=== PATIENT | male | born 1945 | race Caucasian/White ===

== ENCOUNTER 2016-10-20 15:43 | Emergency (ER) | payer MEDICARE ==
[~2016-10-20] VITALS: Ht 175.3 cm; Wt 79.0 kg
[~2016-10-20 15:43] MED LIST: LOVA20TA PO; PERC7.5T13 PO; URISOL PO
[2016-10-20 15:46] VITALS: BP 143/80; PULSE 85; RESP 17; TEMP 98.7; O2SAT 98
[2016-10-20 16:04] VITALS: O2SAT 99
[2016-10-20 16:07] VITALS: BP 183/96; PULSE 75; RESP 15; O2SAT 97
[2016-10-20] MEDS ORDERED: [UNRECOGNIZED DRUG - OTHER] PO (16:07)
[2016-10-20] MEDS ORDERED: SODIUM CHLOR 0.9% 1000 ML INJ 1,000 ML IV ONE (16:10)
[2016-10-20] MEDS ORDERED: ASPI1TAB69 PO (16:11)
[2016-10-20] MEDS ORDERED: ARGI500C PO (16:11)
[2016-10-20] MEDS ORDERED: KETOROLAC TROMETHAMINE 30 MG/ML (IVP) VIAL IV PUSH ONE (16:15)
[2016-10-20] MEDS ORDERED: SODIUM CHLORIDE 0.9% FLUSH 10 ML FLUSH IVF PRN (16:15)
--- NOTE | 2016-10-20 16:20 | PD ---
HPI Chief Complaint: Dizziness Time Seen by Provider: 16:12 Travel History International Travel<30 days: No Contact w/Intl Traveler<30days: No Traveled to known affect area: No History of Present Illness HPI 70 year old male presents to the emergency department for evaluation of dizziness that started at 10am this morning. He states he feels lightheaded. He denies syncope, falls, nausea, vomiting, headache, fever. No chest pain or SOB. He reports right groin pain that started a few months ago, but is worsenign. He reports history of kidney stones and states this is his typical pain. He reports chronic intermittent diarrhea/constipation, but states this is not worse than normal. He reports history of nephrolithiasis and tinnitus. He takes over the counter vitamins. Patient states dizziness is improving. PFSH Past Medical History High Cholesterol: Yes Cerebrovascular Accident: Yes (TIA) Diminished Hearing: No Gout: Yes Hiatal Hernia: Yes Medical other: Yes (tinnitus) Immunizations Current: No Past Surgical History Abdominal Surgery: Yes (HERNIA REPAIR) Tonsillectomy: Yes Social History Alcohol Use: Yes (OCC.) Tobacco Use: No Substance Use: No Allergies-Medications (Allergen,Severity, Reaction): Coded Allergies: No Known Allergies (Unverified , 06/27/15) Reported Meds & Prescriptions Reported Meds & Active Scripts Active Reported l-Arginine (Arginine) 500 Mg Cap 1 Cap PO DAILY Aspirin 81 Mg Tabdr 81 Mg PO DAILY [brain quiet plus] 1 Tab PO DAILY Review of Systems Except as stated in HPI: all other systems reviewed are Neg Physical Exam Narrative GENERAL: Well-nourished, well-developed male patient, ambulatory. Afebrile. SKIN: Focused skin assessment warm/dry. HEAD: Normocephalic. Atraumatic. EYES: No scleral icterus. No injection or drainage. NECK: Supple, trachea midline. No JVD or lymphadenopathy. CARDIOVASCULAR: Regular rate and rhythm without murmurs, gallops, or rubs. RESPIRATORY: Breath sounds equal bilaterally. No accessory muscle use. Lung sounds are clear to auscultation throughout. GASTROINTESTINAL: Abdomen soft and nondistended. Patient has tenderness over the right groin. MUSCULOSKELETAL: No cyanosis, or edema. BACK: Nontender without obvious deformity. No CVA tenderness. NEUROLOGICAL: Awake and alert. Cranial nerves II through XII intact. Motor and sensory grossly within normal limits. Five out of 5 muscle strength in all muscle groups. Normal speech. Data Data Last Documented VS Vital Signs Date Time Temp Pulse Resp B/P Pulse Ox O2 Delivery O2 Flow Rate FiO2 10/20/16 16:34 63 133/69 78 141/89 10/20/16 16:22 15 99 Room Air 10/20/16 15:46 98.7 Orders Electrocardiogram (10/20/16 16:10) Complete Blood Count With Diff (10/20/16 16:10) Comprehensive Metabolic Panel (10/20/16 16:10) Magnesium (Mg) (10/20/16 16:10) Ckmb (Isoenzyme) Profile (10/20/16 16:10) Troponin I (10/20/16 16:10) Urinalysis - C+S If Indicated (10/20/16 16:10) Ecg Monitoring (10/20/16 16:10) Iv Access Insert/Monitor (10/20/16 16:10) Oximetry (10/20/16 16:10) Sodium Chloride 0.9% Flush (Ns Flush) (10/20/16 16:15) Sodium Chlor 0.9% 1000 Ml Inj (Ns 1000 M (10/20/16 16:10) Orthostatic Vital Signs (10/20/16 16:10) Ketorolac Inj (Toradol Inj) (10/20/16 16:15) Ct Abd/Pel W/O Iv Contrast (10/20/16 ) Labs Laboratory Tests Test 10/20/16 10/20/16 14:25 16:30 White Blood Count 6.2 TH/MM3 Red Blood Count 4.89 MIL/MM3 Hemoglobin 14.8 GM/DL Hematocrit 43.6 % Mean Corpuscular Volume 89.2 FL Mean Corpuscular Hemoglobin 30.2 PG Mean Corpuscular Hemoglobin 33.8 % Concent Red Cell Distribution Width 12.6 % Platelet Count 178 TH/MM3 Mean Platelet Volume 9.3 FL Neutrophils (%) (Auto) 46.9 % Lymphocytes (%) (Auto) 42.2 % Monocytes (%) (Auto) 6.2 % Eosinophils (%) (Auto) 3.6 % Basophils (%) (Auto) 1.1 % Neutrophils # (Auto) 2.9 TH/MM3 Lymphocytes # (Auto) 2.6 TH/MM3 Monocytes # (Auto) 0.4 TH/MM3 Eosinophils # (Auto) 0.2 TH/MM3 Basophils # (Auto) 0.1 TH/MM3 CBC Comment DIFF FINAL Differential Comment Sodium Level 144 MEQ/L Potassium Level 3.5 MEQ/L Chloride Level 110 MEQ/L Carbon Dioxide Level 24.8 MEQ/L Anion Gap 9 MEQ/L Blood Urea Nitrogen 8 MG/DL Creatinine 1.35 MG/DL Estimat Glomerular Filtration 52 ML/MIN Rate Random Glucose 95 MG/DL Calcium Level 9.3 MG/DL Magnesium Level 2.2 MG/DL Total Bilirubin 0.8 MG/DL Aspartate Amino Transf 24 U/L (AST/SGOT) Alanine Aminotransferase 31 U/L (ALT/SGPT) Alkaline Phosphatase 112 U/L Total Creatine Kinase 63 U/L Troponin I LESS THAN 0.02 NG/ML Total Protein 7.5 GM/DL Albumin 4.1 GM/DL Urine Color YELLOW Urine Turbidity CLEAR Urine pH 6.5 Urine Specific [place] 1.014 Urine Protein NEG mg/dL Urine Glucose (UA) NEG mg/dL Urine Ketones NEG mg/dL Urine Occult Blood NEG Urine Nitrite NEG Urine Bilirubin NEG Urine Urobilinogen LESS THAN 2.0 MG/DL Urine Leukocyte Esterase TRACE Urine RBC 1 /hpf Urine WBC 3 /hpf Urine Mucus FEW /lpf Microscopic Urinalysis Comment CULT NOT INDICATED MDM Medical Decision Making Medical Screen Exam Complete: Yes Emergency Medical Condition: Yes Medical Record Reviewed: Yes Interpretation(s) Last Impressions Abdomen/Pelvis CT 10/20/16 0000 Signed Impressions: Service Date/Time: Thursday, October 20, 2016 16:57 - CONCLUSION: 1. Small bilateral nonobstructing renal calculi. No acute findings within the abdomen and pelvis. Hari Castillo MD Differential Diagnosis electrolyte abnormality vs. ACS vs. nephrolithiasis vs. orthostatic hypotension vs. dehydration vs. vertigo Narrative Course 70 year old male presents to the emergency department for evaluation of dizziness that started this morning and worsening right groin pain. EKG, CBC, CMP, Magnesium, CK, Troponin, UA, are ordered and pending. Orthostatic VS are ordered and pending. CT abdomen/pelvis without contrast is ordered and pending. Patient is given NS 1 L IV bolus and ketorolac 15 mg IV for pain. EKG shows SR, HR 64, no acute ST changes. CBC is unremarkable. CMP shows creatinine of 1.35. Magnesium is 2.2. CK is 63. Troponin is less than 0.02. UA is negative for occult blood and infection. CT abdomen/pelvis shows small bilateral nonobstructing renal calculi. No acute findings within the abdomen and pelvis.. Orthostatic VS are negative for orthostatic hypotension. My attending physician, Dr. Gill, is aware of physical exam findings, laboratory findings, and imaging results. He agrees with plan and disposition. The patient was discharged in stable condition with instructions, including return instructions and follow up instructions. Diagnosis Primary Impression: Dizziness Additional Impression: Renal calculi Referrals: Primary Care Physician call for appointment Patient Instructions: Dizziness (ED), General Instructions Additional Instructions: Follow up with your primary care physician. Return to the emergency department for any acute, worsening of symptoms. Med/Other Pt SpecificInfo: No Change to Meds Disposition: 01 DISCHARGE HOME Condition: Stable [place] Oct 20, 2016 16:19
[2016-10-20 16:22] VITALS: BP 147/85; PULSE 87; RESP 15; O2SAT 99
[2016-10-20 16:34] VITALS: BP_SYST 133; BP_SYST 141; BP_DIAS 69; BP_DIAS 89
[2016-10-20 16:41] LABS: AUTOMATED NEUTROPHIL # 2.9 TH/MM3 (1.8-7.7); BASOPHIL # 0.1 TH/MM3 (0-0.2); BASOPHIL % 1.1 % (0.0-2.0); EOSINOPHIL # 0.2 TH/MM3 (0-0.4); EOSINOPHIL % 3.6 % (0.0-4.0); HEMATOCRIT 43.6 % (39.0-51.0); HEMO FLAGS DIFF FINAL; LYMPH % 42.2 % (9.0-44.0); LYMPHOCYTE # 2.6 TH/MM3 (1.0-4.8); MEAN CELL VOLUME 89.2 FL (80.0-100.0); MEAN CORPUSCULAR HEMOGLOBIN 30.2 PG (27.0-34.0); MEAN CORPUSCULAR HGB CONC 33.8 % (32.0-36.0); MONO % 6.2 % (0.0-8.0); NEUT % 46.9 % (16.0-70.0); PLATELET COUNT 178 TH/MM3 (150-450); RED BLOOD COUNT 4.89 MIL/MM3 (4.50-5.90); RED CELL DISTRIBUTION WIDTH 12.6 % (11.6-17.2); WHITE BLOOD COUNT 6.2 TH/MM3 (4.0-11.0)
[2016-10-20 16:44] LABS: BLOOD, URINE NEG (NEG); COMMENT (UR) CULT NOT INDICATED; CULTURE IF INDICATED CULT NOT INDICATED; GLUCOSE,URINE NEG (NEG); KETONE, URINE NEG (NEG); MUCUS URINE FEW /lpf (OCC); NITRITE,URINE NEG (NEG); PH, URINE 6.5 (5.0-8.5); URINE COLOR YELLOW (YELLW/STRAW)
[2016-10-20 17:03] LABS: ANION GAP 9 MEQ/L (5-15); AST (GOT) 24 U/L (15-37); BICARBONATE 24.8 MEQ/L (21.0-32.0); BLOOD UREA NITROGEN 8 MG/DL (7-18); CHLORIDE 110 MEQ/L (98-107); GLOMERULAR FILTRATION RATE 52 ML/MIN (>89); MAGNESIUM 2.2 MG/DL (1.5-2.5); POTASSIUM 3.5 MEQ/L (3.5-5.1); SODIUM (NA) 144 MEQ/L (136-145)
[2016-10-20 17:08] LABS: ALKALINE PHOSPHATASE 112 U/L (45-117); ALT (GPT) 31 U/L (12-78); TOTAL BILIRUBIN ADULT 0.8 MG/DL (0.2-1.0)
[2016-10-20 17:09] LABS: CREATINE KINASE 63 U/L (39-308)
--- NOTE | 2016-10-20 17:20 | RADRPT ---
EXAM DATE/TIME: 10/20/2016 16:57 [facility] COMPARISON: No previous studies available for comparison. INDICATIONS : Right groin pain. ORAL CONTRAST: No oral contrast ingested. RADIATION DOSE: 13.21 CTDIvol (mGy) MEDICAL HISTORY : Renal calculi. Hernia, inguinal. SURGICAL HISTORY : Inguinal hernia repair. ENCOUNTER: Initial ACUITY: 1 week PAIN SCALE: 4/10 LOCATION: Right lower quadrant TECHNIQUE: Volumetric scanning of the abdomen and pelvis was performed. Using automated exposure control and ad justment of the mA and/or kV according to patient size, radiation dose was kept as low as reasonably achievable to obtain optimal diagnostic quality images. FINDINGS: LOWER LUNGS: The visualized lower lungs are clear. LIVER: Homogeneous density without lesion. There is no dilation of the biliary tree. No calcified gallston es. SPLEEN: Normal size without lesion. PANCREAS: Within normal limits. KIDNEYS: Nonobstructing linear calculus right kidney lower pole measuring about 4 mm. Tiny 1 mm calculus upper pole left kidney. Atherosclerotic aorta. ADRENAL GLANDS: Within normal limits. VASCULAR: There is no aortic aneurysm. BOWEL/MESENTERY: The stomach, small bowel, and colon demonstrate no acute abnormality. There is no free intraperitone al air or fluid. ABDOMINAL WALL: Within normal limits. RETROPERITONEUM: There is no lymphadenopathy. BLADDER: No wall thickening or mass. REPRODUCTIVE: Within normal limits. INGUINAL: There is no lymphadenopathy or hernia. MUSCULOSKELETAL: Within normal limits for patient age. CONCLUSION: 1. Small bilateral nonobstructing renal calculi. No acute findings within the abdomen and pelvis. Hari Castillo MD on October 20, 2016 at 17:14 Board Certified Radiologist. This report was verified electronically.
[2016-10-20 18:11] VITALS: BP 138/76
--- NOTE | 2016-10-21 14:19 | EKG ---
Date Performed: 10/20/2016 Time Performed: 16:20:37 PTAGE: 70 years EKG: Sinus rhythm WITH SINUS ARRHYTHMIA RIGHT BUNDLE BRANCH BLOCK Compared to previous tracing, the right bundle branc h block is new. ABNORMAL ECG PREVIOUS TRACING : 10/14/2014 17.22 DOCTOR: Blade Cannon Interpretating Date/Time 10/21/2016 14:18:28
== END 2016-10-20 18:49 | disposition home or self-care (01) ==
LOC: NEPC 15:43
DX: R42 Dizziness and giddiness (principal); N20.0 Calculus of kidney; R94.31 Abnormal electrocardiogram [ECG] [EKG]; R10.31 Right lower quadrant pain; E78.00 Pure hypercholesterolemia, unspecified; H93.19 Tinnitus, unspecified ear; Z87.442 Personal history of urinary calculi; Z87.19 Personal history of other diseases of the digestive system; Z86.79 Personal history of other diseases of the circulatory system; Z87.39 Personal history of other diseases of the musculoskeletal system and connective tissue
CPT/HCPCS: 74176; 80053; 81001; 82550; 83735; 84484; 85025; 93005; 96361; 96374; 99284; J1885; J7030